=== PATIENT | female | born 1965 | race Caucasian/White ===

== ENCOUNTER 2023-05-23 15:15 | Emergency (ER) | payer MEDICARE, SELFPAY ==
--- NOTE | 2023-05-23 15:39 | ED_ITS ---
HPI - General Adult General Chief complaint: Psychiatric Symptoms Stated complaint: from adult daycare,depressed, fears for her safety Time Seen by Provider: 05/23/23 15:36 Source: patient and EMS Mode of arrival: EMS Limitations: no limitations History of Present Illness HPI narrative: Patient is a 57 year old assigned female at with a history of anxiety presenting to the emergency department today with increased depression. Patient states that she is feeling more depressed and down lately. Patient states that she isn't suicidal but she doesn't feel safe to go home at this time. Patient denies any dizziness, lightheadedness, abdominal pain, nausea, vomiting, fever, chills, blurry vision, double vision, loss of vision, chest pain, difficulty breathing, shortness of breath, back pain, night sweats, pain with urination, increased urinary frequency, increased urinary urgency, blood in her urine or stool, syncope or a near syncopal episode, recent trauma or falls, bowel incontinence, bladder incontinence, bowel retention, bladder retention, or any other complaints at this time. Relieving factors: none Exacerbating factors: none Associated symptoms: denies other symptoms Treatments prior to arrival: none Related Data Home Medications Medication Instructions Recorded Confirmed acetaminophen 325 mg tablet 650 mg PO Q4H PRN Pain 05/23/23 05/23/23 (Tylenol) aripiprazole 5 mg tablet (Abilify) 5 mg PO BEDTIME 05/23/23 05/23/23 duloxetine 60 mg capsule,delayed 120 mg PO BEDTIME 05/23/23 05/23/23 release enalapril maleate 5 mg tablet 5 mg PO BEDTIME 05/23/23 05/23/23 famotidine 20 mg tablet (Pepcid) 20 mg PO BEDTIME 05/23/23 05/23/23 gabapentin 600 mg tablet 600 mg PO TID 05/23/23 05/23/23 (Neurontin) hydroxyzine HCl 50 mg tablet 50 mg PO BEDTIME 05/23/23 05/23/23 levetiracetam 1,000 mg tablet 1,000 mg PO TID 05/23/23 05/23/23 levetiracetam 250 mg tablet 250 mg PO TID 05/23/23 05/23/23 lorazepam 1 mg tablet (Ativan) 1 mg PO BEDTIME PRN Anxiety 05/23/23 05/23/23 mometasone-formoterol HFA 100 2 puff inhalation BID 05/23/23 05/23/23 mcg-5 mcg/actuation aerosol inhaler (Dulera) Allergies Allergy/AdvReac Type Severity Reaction Status Date / Time latex Allergy Unknown Verified 05/23/23 15:53 meloxicam Allergy Unknown Verified 05/23/23 15:53 nadolol Allergy Unknown Verified 05/23/23 15:53 Penicillins Allergy Unknown Verified 05/23/23 15:53 topiramate Allergy Unknown Verified 05/23/23 15:53 sulfa drugs Allergy Unknown Uncoded 05/23/23 15:53 Review of Systems 2 Constitutional: Constitutional: Reports no additional constitutional complaints, Denies chills, Denies fever(s) and Denies night sweats Eyes: Eyes: Reports no additional eye complaints, Denies blurry vision, Denies change in vision, Denies diplopia, Denies eye discharge, Denies loss of vision and Denies eye pain ENT: Denies dizziness Cardiovascular: Cardiovascular: Reports no additional cardiovascular complaints, Denies chest pain, Denies lightheadedness, Denies Loss of Consciousness and Denies dyspnea Respiratory: Respiratory: Reports no additional respiratory complaints and Denies dyspnea Gastrointestinal: Gastrointestinal: Reports no additional gastrointestinal complaints, Denies abdominal pain, Denies melena, Denies hematochezia, Denies change in bowel habits and Denies change in stool character Genitourinary: Genitourinary: Denies hematuria, Denies urinary frequency, Denies dysuria, Denies urinary incontinence, Denies urinary hesitancy and Denies urinary urgency Musculoskeletal: Musculoskeletal: Reports no additional musculoskeletal complaints, Denies numbness and Denies tingling Neurologic: Denies dizziness, Denies loss of vision, Denies numbness and Denies tingling Psychiatric: Psychiatric: Reports depression Endocrine: Endocrine: Reports no additional endocrine complaints Hematologic/Lymphatic: Hematologic/Lymphatic: Reports no additional hematologic/lymphatic complaints Allergic/Immunologic: Allergic/Immunologic: Reports no additional allergic/immunologic complaints PMFSH Past Medical History Attestation statement: The following information was validated with the patient. Source: old records reviewed and nursing notes reviewed Social History Social History Smoked in Last 30 Days: No Use of substances other than those prescribed or required for medical reasons: No Advance Directives: No Advance Directives Information Provided: No Physical Exam ED Vital Signs: Vital Signs - 24 hr 05/23/23 17:05 05/24/23 06:44 Temperature 97.5 F 96.8 F Pulse Rate 83 80 Respiratory Rate 18 18 Blood Pressure 154/98 H 152/79 H Pulse Oximetry 94 97 Oxygen Delivery Method Room Air Room Air BMI result Body Mass Index 53.9 Const General: cooperative, no acute distress, alert and awake Nutritional Appearance: well nourished Orientation/consciousness: patient oriented x3 Limitations: no limitations HENMT Head: Yes normal to inspection and Yes atraumatic Ears: hearing grossly normal bilaterally and external ears normal General nose exam: Normal external nose present, no nasal discharge noted and no epistaxis Face and sinus: Yes normal facial exam, No abrasion and No laceration Mouth: Normal oral and palatal mucosa present, no drooling and no muffled voice Eyes General: appearance normal, both eyes and all related structures Periorbital: periorbital findings normal Eyelids: Yes eyelids normal Conjunctivae: conjunctivae normal Pupils: Equal, round and reactive pupils present EOM: EOMs intact bilaterally Neck Neck: Yes normal visual inspection, Yes full ROM and Yes no lymphadenopathy Chest Chest palpation & inspection: normal inspection of the chest Resp Effort & Inspection: normal respiratory effort and able to speak in complete sentences GI Inspection: Yes normal to inspection Neuro General: patient oriented x3 and moves all extremities Cranial nerves: Yes Equal, round and reactive pupils present Cognition (Neuro): normal cognition Motor exam (neuro): 5/5 motor strength present throughout Sensory Exam: Normal double simultaneous stimulation for sensation Coordination: [id number] test normal Extrem General: Yes normal to inspection, Yes full ROM and Yes capillary refill normal Psych Appearance: grossly normal Mental Status: mental status grossly normal Affect: Sad affect present Medications Administered Generic Name Dose Route Start Last Admin Trade Name Freq PRN Reason Stop Dose Admin Aripiprazole 5 mg 05/23/23 21:00 05/23/23 21:44 Aripiprazole 5 Mg Tablet PO 5 mg BEDTIME OK Administration Duloxetine HCl 120 mg 05/23/23 21:00 05/23/23 21:43 Duloxetine Hcl 60 Mg Capsule.Dr PO 120 mg BEDTIME OK Administration Enalapril Maleate 5 mg 05/23/23 21:00 05/23/23 21:43 Enalapril Maleate 5 Mg Tablet PO 5 mg BEDTIME OK Administration Protocol Famotidine 20 mg 05/23/23 21:00 05/23/23 21:44 Famotidine 20 Mg Tablet PO 20 mg BEDTIME OK Administration Fluticasone/Vilanterol 1 puff 05/24/23 08:00 05/24/23 10:32 Fluticasone/Vilanterol 100/25 Blst.W.Dev INHALE Not Given RDAILY OK Gabapentin 600 mg 05/23/23 21:00 05/24/23 14:19 Gabapentin 600 Mg Tablet PO 600 mg TID OK Administration Hydroxyzine HCl 50 mg 05/23/23 21:00 05/23/23 21:43 Hydroxyzine Hcl 50 Mg Tablet PO 50 mg BEDTIME OK Administration Levetiracetam 1,000 mg 05/23/23 21:00 05/24/23 14:19 Levetiracetam 1,000 Mg Tablet PO 1,000 mg TID OK Administration Levetiracetam 250 mg 05/23/23 21:00 05/24/23 14:20 Levetiracetam 250 Mg Tablet PO 250 mg TID OK Administration Lorazepam 1 mg 05/23/23 16:50 05/23/23 22:19 Lorazepam 1 Mg Tablet PO 1 mg BEDTIME PRN Administration Anxiety Discontinued Medications Generic Name Dose Route Start Last Admin Trade Name Freq PRN Reason Stop Dose Admin Acetaminophen 975 mg 05/24/23 09:12 05/24/23 09:28 Acetaminophen 325 Mg Tablet PO 05/24/23 09:13 975 mg ONCE STA Administration Enalapril Maleate 5 mg 05/23/23 17:00 05/23/23 17:52 Enalapril Maleate 5 Mg Tablet PO Not Given DAILY OK Protocol Lorazepam 1 mg 05/24/23 14:14 05/24/23 14:20 Lorazepam 1 Mg Tablet PO 05/24/23 14:15 1 mg ONCE ONE Administration Melatonin 6 mg 05/24/23 00:09 05/24/23 00:21 Melatonin 3 Mg Tablet PO 05/24/23 00:10 6 mg ONCE ONE Administration Medical Decision Making Medical Decision Making MDM Narrative: Patient is a 57 year old assigned female at with a history of depression and anxiety presenting to the emergency department today with increased depression. Patient's physical exam was as noted in the physical exam portion of this note. Patient's blood work was unremarkable. Patient's urine showed no acute process. Patient is awaiting CARE team evaluation. Patient's disposition will be determined after CARE team evaluation. Physician observation began 1605. 05/24/2023 07:47 hours Physician observation continued Patient has been in the emergency department for 16 hours and 30 minutes. Patient presented to the emergency department for increased depression, patient was evaluated by the care team and the plan is to re-evaluate the patient this morning to see if her symptoms are improved and to determine disposition. There were no reported incidents on the patient by the overnight staff. Patient will remain in the emergency department Behavioral Health Unit until disposition can be determined or until patient's symptoms improve over time. 15:03 Physician observation continued Patient was re-evaluated by the care team. The patient was presented to a respite unit and the patient has been accepted but bed will not be available till tomorrow morning. Therefore, the patient will be kept in the emergency department Behavioral Health Unit until disposition can be obtained. Differential Diagnosis Differential Diagnoses: The differential diagnosis associated with the presentation includes Depression Anxiety Feeling unsafe Admission/Observation Consideration of admission/observation: Escalation of care including admission/observation considered Patient's disposition will be determined after CARE evaluation. Lab Data [facility] Lab Attestation statement: I reviewed the patient's lab results. My interpretation of these results are in the [facility] Rationale portion of this note. 05/23/23 16:49 05/23/23 16:49 Labs: Lab Results 05/23/23 05/23/23 05/23/23 Range/Units 16:49 16:50 17:15 WBC 7.3 (4.8-10.8) X10*3/uL RBC 4.76 (4.20-5.50) X10*6/uL Hgb 12.9 (12.0-16.0) g/dl Hct 40.9 (37.0-47.0) % MCV 85.9 (80.0-98.0) fL MCH 27.1 (27.0-33.0) pg MCHC 31.5 (31.0-35.0) g/dl RDW 15.0 (11.0-16.0) % Plt Count 291 (160-400) X10*3/uL MPV 10.0 (9.4-12.3) fL Immature Gran % (Auto) 0.3 (0.0-0.4) % Neut % (Auto) 73.6 H (45-73) % Lymph % (Auto) 17.3 L (20-40) % Hall % (Auto) 6.0 (2-11) % Eos % (Auto) 2.5 (0-4) % Baso % (Auto) 0.3 (0-2) % Lymph # (Auto) 1.3 (1.2-4.9) X10*3/uL Hall # (Auto) 0.4 (0.1-1.2) X10*3/uL Eos # (Auto) 0.2 (0.0-0.4) X10*3/uL Baso # (Auto) 0.0 (0.0-0.2) X10*3/uL Abs Immat Gran (auto) 0.02 (0.00-0.03) X10*3/uL Absolute Neuts (auto) 5.4 (2.0-8.3) x10*3/uL Absolute Nucleated RBC 0.000 (0.0-0.012) X10*3/uL Nucleated RBC % (auto) 0.0 (0.0-0.2) /100WBC Sodium 141 (135-145) mmol/L Potassium 4.3 (3.3-5.1) mmol/L Chloride 105 (96-108) mmol/L Carbon Dioxide 27 (22-29) mmol/L Anion Gap 13 (12-20) BUN 17 H (9-16) mg/dL Creatinine 0.89 (0.5-1.4) mg/dL Estim Creat Clear Calc 108.0 Estimated GFR > 60 Random Glucose 101 (60-115) mg/dL Calcium 10.1 (8.4-10.2) mg/dL Total Bilirubin 0.4 (0.0-1.0) mg/dL AST 14 (5-31) U/L ALT 16 (0-31) U/L Alkaline Phosphatase 95 (39-117) U/L Total Protein 8.0 (6.5-8.0) g/dL Albumin 4.3 (3.5-5.0) g/dL Urine Color Yellow Urine Appearance Clear Urine pH 5.0 (5.0-9.0) Ur Specific [place] 1.020 (1.005-1.025) Urine Protein Negative (Neg-Trace) mg/dL Urine Glucose (UA) Negative (Negative) mg/dL Urine Ketones Negative (Negative) mg/dL Urine Blood Negative (Negative) Urine Nitrite Negative (Negative) Ur Leukocyte Esterase Negative (Negative) Urine Opiates Screen Not Detected (Not Detect) Urine Fentanyl Screen Not Detected (Not Detect) Ur Barbiturates Screen Not Detected (Not Detect) Ur Phencyclidine Scrn Not Detected (Not Detect) Ur Amphetamines Screen Not Detected (Not Detect) U Benzodiazepines Scrn Not Detected (Not Detect) Urine Cocaine Screen Not Detected (Not Detect) U Marijuana (THC) Screen Not Detected (Not Detect) Ethyl Alcohol < 10 mg/dL COVID-19 ([facility]) Negative (Negative) COVID-19 Clin Com See Note Independent Historian Clinical information obtained from an independent historian. History obtained from or confirmed by: EMS (EMS provided additional history and confirmed the history provided by the patient.) Critical Care Time Critical Care Time Critical Care Time: Yes Total Critical Care Time: 45 Attestation: I spent 45 minutes of Critical Care Time with this patient. This does not include time spent on separately reported billable procedures. Discharge Plan Discharge Clinical Impression: Depression Patient Disposition: Still a Patient Prescriptions: No Action gabapentin [Neurontin] 600 mg Tablet 600 mg PO TID famotidine [Pepcid] 20 mg Tablet 20 mg PO BEDTIME hydroxyzine HCl 50 mg Tablet 50 mg PO BEDTIME lorazepam [Ativan] 1 mg Tablet 1 mg PO BEDTIME PRN (Reason: Anxiety) aripiprazole [Abilify] 5 mg Tablet 5 mg PO BEDTIME Dulera 100-5 mcg/actuation Hfa Aerosol Inhaler 2 puff INHALATION BID acetaminophen [Tylenol] 325 mg Tablet 650 mg PO Q4H PRN (Reason: Pain) duloxetine 60 mg Capsule,Delayed Release(Dr/Ec) 120 mg PO BEDTIME enalapril maleate 5 mg tablet 5 mg PO BEDTIME levetiracetam 250 mg tablet 250 mg PO TID levetiracetam 1,000 mg tablet 1,000 mg PO TID Interventions: [place]-Suicide Risk Severity Scale Last Done: 05/24/23 04:18
[2023-05-23 15:41] VITALS: BP 150/85; PULSE 82; O2SAT 95; BMI 53.9
--- NOTE | 2023-05-23 15:45 | PC.NURSE ---
pt comes from adult day care for not feeling safe to go home . pt sts I have no will to live with my parents gone, I want to go up to [facility] and be with them . pt sts she has always lived with her parents as they took care of her with her learning disability. once her parents got older she took care of them and now that they're gone, has no one. pt sts she has a sister that takes care of her own [id number]. pt requesting t/w call sister to let her know that pt is here and why. pt calm and cooperative roseann. changed over to BHPOD attire. pt has a cane that has been put with belongings, pt given walker. plan of care ongoing.
[2023-05-23 16:59] LABS: MANUAL DIFF FLAG NO
[2023-05-23 17:02] LABS: Basophils Percent Auto 0.3 % (0-2); Eosinophils Absolute Auto 0.2 X10*3/uL (0.0-0.4); Eosinophils Percent Auto 2.5 % (0-4); Hematocrit 40.9 % (37.0-47.0); Hemoglobin 12.9 g/dl (12.0-16.0); Imm Gran Abs Auto 0.02 X10*3/uL (0.00-0.03); Imm Gran Pct Auto 0.3 % (0.0-0.4); Lymphocytes Absolute Auto 1.3 X10*3/uL (1.2-4.9); Lymphocytes Percent Auto 17.3 % (20-40); Mean Corpuscular HGB Conc 31.5 g/dl (31.0-35.0); Mean Corpuscular Hemoglobin 27.1 pg (27.0-33.0); Mean Corpuscular Volume 85.9 fL (80.0-98.0); Monocytes Absolute Auto 0.4 X10*3/uL (0.1-1.2); Neutrophils Absolute Auto 5.4 x10*3/uL (2.0-8.3); Neutrophils Percent Auto 73.6 % (45-73); Platelet Count 291 X10*3/uL (160-400); Red Blood Count 4.76 X10*6/uL (4.20-5.50); White Blood Count 7.3 X10*3/uL (4.8-10.8)
[2023-05-23 17:05] VITALS: BP 154/98; PULSE 83; RESP 18; TEMP 36.4; O2SAT 94
[2023-05-23 17:22] LABS: COVID-19 Test Negative (Negative); IDNOW Serial# 08D9AD1C
[2023-05-23 17:29] LABS: Appearance Urine Clear; Color Urine Yellow; Glucose Urine UA Negative (Negative); Leukocyte Esterase Urine Negative (Negative); Nitrite Urine Negative (Negative); Urine Blood Negative (Negative); Urine Ketones Negative (Negative); Urine Protein Negative (Neg-Trace)
[2023-05-23 17:32] LABS: Alanine Aminotransferase 16 U/L (0-31); Albumin Level 4.3 g/dL (3.5-5.0); Alkaline Phosphatase 95 U/L (39-117); Anion Gap 13 (12-20); Aspartate Amino Transferase 14 U/L (5-31); Bilirubin Total 0.4 mg/dL (0.0-1.0); Blood Urea Nitrogen 17 mg/dL (9-16); Calcium 10.1 mg/dL (8.4-10.2); Carbon Dioxide 27 mmol/L (22-29); Chloride 105 mmol/L (96-108); Estimated Glomerular Filt Rate > 60; Ethanol < 10 mg/dL; Glucose Random 101 mg/dL (60-115); Potassium 4.3 mmol/L (3.3-5.1); Sodium 141 mmol/L (135-145)
[2023-05-23 17:35] LABS: Amphetamine Screen Urine Not Detected (Not Detect); Barbiturates, Urine Not Detected (Not Detect); Benzodiazepines Screen Urine Not Detected (Not Detect); Cannabinoid Screen Urine Not Detected (Not Detect); Cocaine Screen Urine Not Detected (Not Detect); Fentanyl, urine Not Detected (Not Detect); Opiate Screen Urine Not Detected (Not Detect); Phencyclidine Screen Urine Not Detected (Not Detect)
[2023-05-23] MEDS: LORazepam 1 MG TABLET PO ×2 (17:36→22:19)
--- NOTE | 2023-05-23 17:48 | PC.NURSE ---
med rec complete. pt sts she takes PRN ativan as well as at night. pt given prn ativan for anxiety. pt in room watching tv, in no distress roseann. cooperative with staff. ambulated out of room without walker. pt is a&o. plan of care ongoing.
--- NOTE | 2023-05-23 19:04 | PHA.MEDREC ---
Pharmacy Consult ? Medication Reconciliation Pharmacy has reviewed the medication reconciliation completed by Kell. Maria Ines Mccray, YoavD
[2023-05-23] MEDS: DULoxetine HCl 60 MG CAPSULE.DR 120 MG PO (21:43)
[2023-05-23] MEDS: levETIRAcetam 250 MG TABLET PO (21:43)
[2023-05-23] MEDS: hydrOXYzine HCL 50 MG TABLET PO (21:43)
[2023-05-23] MEDS: levETIRAcetam 1,000 MG TABLET 1000 MG PO (21:43)
[2023-05-23] MEDS: Gabapentin 600 MG TABLET PO (21:43)
[2023-05-23] MEDS: ARIPiprazole 5 MG TABLET PO (21:44)
[2023-05-23] MEDS: Famotidine 20 MG TABLET PO (21:44)
[2023-05-24] MEDS: Melatonin 3 MG TABLET 6 MG PO (00:21)
[2023-05-24 06:44] VITALS: BP 152/79; PULSE 80; RESP 18; TEMP 36; O2SAT 97
[2023-05-24] MEDS: levETIRAcetam 250 MG TABLET PO ×3 (09:08→20:36)
[2023-05-24] MEDS: levETIRAcetam 1,000 MG TABLET 1000 MG PO ×3 (09:08→20:36)
[2023-05-24] MEDS: Gabapentin 600 MG TABLET PO ×3 (09:08→20:36)
[2023-05-24] MEDS: Acetaminophen 325 MG TABLET 975 MG PO (09:28)
[2023-05-24] MEDS: LORazepam 1 MG TABLET PO ×2 (14:20→21:29)
--- NOTE | 2023-05-24 15:24 | MHC.CARE ---
Patient referred to [facility], she completed phone screening with Ani; they will call night or tomorrow to coordinate admission. Dr. Pierce updated with plan of care.
[2023-05-24] MEDS: Acetaminophen 325 MG TABLET 650 MG PO (17:38)
[2023-05-24 20:12] VITALS: BP 135/67; PULSE 72; RESP 16; TEMP 36.6; O2SAT 96
[2023-05-24] MEDS: DULoxetine HCl 60 MG CAPSULE.DR 120 MG PO (20:36)
[2023-05-24] MEDS: ARIPiprazole 5 MG TABLET PO (20:36)
[2023-05-24] MEDS: hydrOXYzine HCL 50 MG TABLET PO (20:36)
[2023-05-24] MEDS: Famotidine 20 MG TABLET PO (20:36)
--- NOTE | 2023-05-24 21:20 | PC.NURSE ---
This conventional underwriter assumed care of this Pt at 1900. Pt A&Ox3, calm and cooperative. Pt in common area watching TV. Pt ambulating independently with steady gait. Pt medicated per MAY. PO fluids given per request.
[2023-05-24 23:25] VITALS: BP 163/99; PULSE 70; RESP 16; TEMP 36.2; O2SAT 97
--- NOTE | 2023-05-25 01:22 | PC.NURSE ---
Pt ambulated to BR with steady gait. Back to room.
[2023-05-25] MEDS: levETIRAcetam 1,000 MG TABLET 1000 MG PO (08:17)
[2023-05-25] MEDS: levETIRAcetam 250 MG TABLET PO (08:17)
[2023-05-25] MEDS: Gabapentin 600 MG TABLET PO (08:17)
--- NOTE | 2023-05-25 08:27 | PC.NURSE ---
assumed care of pt at 0700. pt a&o x4, pleasant, calm, and cooperative. pt medicated per mar with morning meds. pt reporting a caffeine headache , provided with hot tea. pt denies SI, sts she is still depressed due to the loss of her parents. pt requesting 1:1 therapy or group therapy. sts she does not want to go backwards due to her making progress. pt resting quietly on bed watching tv. rr even/unlabored. awaiting re-evaluation by care team. plan of care ongoing.
--- NOTE | 2023-05-25 09:27 | PC.NURSE ---
called pharmacy at 0900 for juan diego. never brought up.
[2023-05-25 10:13] VITALS: BP 159/93; PULSE 79; RESP 16; TEMP 36.7; O2SAT 97
== END 2023-05-25 10:28 ==
PROVIDERS: Emergency Medicine; Emergency Provider Emergency Medicine Emergency Medical Services
DX: F33.9 Major depressive disorder, recurrent, unspecified (principal); F41.9 Anxiety disorder, unspecified; Z79.899 Other long term (current) drug therapy; Z11.52 Encounter for screening for COVID-19
CPT/HCPCS: 80053; 80307; 81003; 85025; 87635; 99285; S9485

== ENCOUNTER 2023-08-22 14:57 | Emergency (ER) | payer MEDICARE, SELFPAY ==
--- NOTE | ~2023-08-22 | US_ITS ---
EXAMINATION: US VENOUS ULTRASOUND WITH DOPPLER LOWER EXTREMITY, RIGHT CLINICAL INFORMATION: Erythema, pain, swelling COMPARISON: None available. TECHNIQUE: Ultrasound of the deep veins is performed from the hip to the calf with compression sonography and color and pulse Doppler assessment. Spectral analysis with color-flow imaging is performed. FINDINGS: There is normal venous compression and respiratory variation and augmented flow. The visualized common femoral vein, superficial femoral vein, profunda femoral vein, popliteal vein, and the trifurcation region shows no evidence of deep venous thrombosis. There is no significant popliteal fossa cyst. If the patient's symptoms persist, followup ultrasound in 5 days 7 days might be of value to exclude proximal propagation from a non-visualized calf vein. US/US venous duplex LE RT IMPRESSION: No DVT demonstrated in the right lower extremity.
--- NOTE | 2023-08-22 15:16 | ED_ITS ---
HPI - General Adult General Chief complaint: General Medical Stated complaint: ?DVT FROM SNF PER EMS Time Seen by Provider: 08/22/23 15:16 Source: patient, EMS and RN notes reviewed Mode of arrival: EMS Limitations: no limitations History of Present Illness ED Provider: Silver Chandler NP HPI narrative: Patient is a 57-year-old female presenting to the emergency department from [facility] for evaluation of right lower leg erythema, pain, and swelling. Patient initially presented to [facility] in [place] for this same complaint. At that time, she had an ultrasound and there was no evidence of DVT. Patient was having difficulty getting to her apartment as she has to climb 14 stairs because she lives on the 2nd floor so she was discharged to acute rehab at that time. Patient states the pain, erythema, and swelling have worsened since. She states she is getting up and walking 5-6 times daily at rehab. She has not anticoagulated. Denies chest pain, palpitations, or dyspnea. MD complaint: right leg pain and swelling Onset (ago): week(s) Location: right and lower extremity Radiation: non-radiation Severity: severe Quality: aching Pain Consistency: constant Relieving factors: rest Exacerbating factors: movement Associated symptoms: denies other symptoms Treatments prior to arrival: other (physical therapy) Related Data Home Medications ?Medication ?Instructions ?Recorded ?Confirmed acetaminophen 325 mg tablet 650 mg PO Q4H PRN Pain 05/23/23 05/23/23 (Tylenol) aripiprazole 5 mg tablet (Abilify) 5 mg PO BEDTIME 05/23/23 05/23/23 duloxetine 60 mg capsule,delayed 120 mg PO BEDTIME 05/23/23 05/23/23 release enalapril maleate 5 mg tablet 5 mg PO BEDTIME 05/23/23 05/23/23 famotidine 20 mg tablet (Pepcid) 20 mg PO BEDTIME 05/23/23 05/23/23 gabapentin 600 mg tablet 600 mg PO TID 05/23/23 05/23/23 (Neurontin) hydroxyzine HCl 50 mg tablet 50 mg PO BEDTIME 05/23/23 05/23/23 levetiracetam 1,000 mg tablet 1,000 mg PO TID 05/23/23 05/23/23 levetiracetam 250 mg tablet 250 mg PO TID 05/23/23 05/23/23 lorazepam 1 mg tablet (Ativan) 1 mg PO BEDTIME PRN Anxiety 05/23/23 05/23/23 mometasone-formoterol HFA 100 2 puff inhalation BID 05/23/23 05/23/23 mcg-5 mcg/actuation aerosol inhaler (Dulera) Previous Rx's ?Medication ?Instructions ?Recorded cephalexin 500 mg capsule 500 mg PO QID #28 caps 08/22/23 Allergies Allergy/AdvReac Type Severity Reaction Status Date / Time latex Allergy Unknown Verified 08/22/23 15:30 meloxicam Allergy Unknown Verified 08/22/23 15:30 nadolol Allergy Unknown Verified 08/22/23 15:30 Penicillins Allergy Unknown Verified 08/22/23 15:30 topiramate Allergy Unknown Verified 08/22/23 15:30 sulfa drugs Allergy Unknown Uncoded 05/23/23 15:53 Review of Systems 2 Review of Systems: As per HPI. Yes all other systems are reviewed and are negative Constitutional: Constitutional: Reports as per HPI [facility] Social History Social History Advance Directives: No Advance Directives Information Provided: No Do you have a plan to hurt others: No Plan Physical Exam ED Vital Signs: Vital Signs - 24 hr 08/22/23 15:28 Temperature 98.8 F Pulse Rate 70 Respiratory Rate 20 Blood Pressure 131/72 Pulse Oximetry 97 Oxygen Delivery Method Room Air BMI result Body Mass Index 57.9 Vital signs have been reviewed and appear to be correct. Blood pressure normal. Heart rate normal. Respiratory rate normal. Temperature normal. Oxygen saturation normal. Const General: cooperative and no acute distress Orientation/consciousness: oriented to person, oriented to place, oriented to time and patient oriented x3 Limitations: no limitations HENMT Head: Yes normocephalic and Yes atraumatic Ears: external ears normal General nose exam: Normal external nose present Face and sinus: Yes face symmetric Mouth: oropharynx normal and moist mucous membranes Throat: Yes uvula midline Eyes Pupils: Equal, round and reactive pupils present Neck Neck: Yes normal visual inspection and Yes supple Resp Effort & Inspection: normal respiratory effort and able to speak in complete sentences Auscultation: clear to auscultation bilaterally Cardio Rate: regular rate Rhythm: regular rhythm Heart sounds: S1 normal heart sound present and S2 normal heart sound present GI Palpation (GI): Soft to palpation and nontender Auscultation: normoactive bowel sounds General: Yes no CVA tenderness Back/Spine/Pelvis Back: no CVA tenderness Skin General skin exam: elasticity normal and turgor normal Neuro General: oriented to person, oriented to place, oriented to time, patient oriented x3, moves all extremities, no focal motor deficits and CN's II-XI intact bilaterally Cranial nerves: Yes Equal, round and reactive pupils present Cognition (Neuro): normal cognition Extrem General: Yes full ROM and Yes normal exam except as noted Right lower extremity: lower leg Details: erythema Location: of the distal lower leg (circumferential), tenderness Location: of the posterior calf, non-pitting edema and warmth Location: of the distal lower leg and foot Details: vascular exam Details: dorsalis pedis pulse present and posterior tibial pulse present Left lower extremity: lower leg Details: erythema Location: of the distal lower leg (circumferential) and non-pitting edema; no tenderness and foot Details: vascular exam Details: dorsalis pedis pulse present and posterior tibial pulse present Psych Mental Status: mental status grossly normal Affect: normal affect Thought process: Normal thought process present Course Reevaluation(s) Reevaluation #1: Patient received in sign-out at change of shift pending ultrasound to rule out DVT. On exam, her right lower extremity does seem slightly more erythematous compared to left. We will treat with 1 week of cephalexin for concern of cellulitis. I discussed this with the patient, she will be discharged back to her rehab Time: 19:52 Medical Decision Making Medical Decision Making [facility] Narrative: Patient is a 57-year-old female presenting to the emergency department from [facility] for evaluation of right lower leg erythema, pain, and swelling. On exam patient is awake, A+Ox3, VS WNL, afebrile, normal neurological exam without focal deficits, physical exam findings as above. Given reported symptoms and physical exam findings, initial differential includes DVT, venous insufficiency, dependent edema. Patient signed out to [facility] pending labs and ultrasound. Differential Diagnosis Differential Diagnoses: The differential diagnosis associated with the presentation includes As per MDM. Lab Data 08/22/23 17:14 08/22/23 17:14 Labs: Lab Results 08/22/23 Range/Units 17:14 WBC 4.8 (4.8-10.8) X10*3/uL RBC 4.18 L (4.20-5.50) X10*6/uL Hgb 11.3 L (12.0-16.0) g/dl Hct 35.7 L (37.0-47.0) % MCV 85.4 (80.0-98.0) fL MCH 27.0 (27.0-33.0) pg MCHC 31.7 (31.0-35.0) g/dl RDW 14.7 (11.0-16.0) % Plt Count 266 (160-400) X10*3/uL MPV 10.7 (9.4-12.3) fL Immature Gran % (Auto) 0.4 (0.0-0.4) % Neut % (Auto) 68.7 (45-73) % Lymph % (Auto) 16.4 L (20-40) % [place] % (Auto) 6.7 (2-11) % Eos % (Auto) 7.2 H (0-4) % Baso % (Auto) 0.6 (0-2) % Lymph # (Auto) 0.8 L (1.2-4.9) X10*3/uL [place] # (Auto) 0.3 (0.1-1.2) X10*3/uL Eos # (Auto) 0.3 (0.0-0.4) X10*3/uL Baso # (Auto) 0.0 (0.0-0.2) X10*3/uL Abs Immat Gran (auto) 0.02 (0.00-0.03) X10*3/uL Absolute Neuts (auto) 3.3 (2.0-8.3) x10*3/uL Absolute Nucleated RBC 0.000 (0.0-0.012) X10*3/uL Nucleated RBC % (auto) 0.0 (0.0-0.2) /100WBC PT 12.3 (11.1-13.3) SEC INR 1.0 (0.9-1.1) Sodium 139 (135-145) mmol/L Potassium 4.7 (3.3-5.1) mmol/L Chloride 103 (96-108) mmol/L Carbon Dioxide 28 (22-29) mmol/L Anion Gap 13 (12-20) BUN 10 (9-16) mg/dL Creatinine 0.79 (0.5-1.4) mg/dL Estim Creat Clear Calc 127.5 Estimated GFR > 60 Random Glucose 106 (60-115) mg/dL Calcium 9.7 (8.4-10.2) mg/dL Total Bilirubin 0.4 (0.0-1.0) mg/dL AST 18 (5-31) U/L ALT 15 (0-31) U/L Alkaline Phosphatase 95 (39-117) U/L B-Natriuretic Peptide 45 (<100) pg/mL Total Protein 7.1 (6.5-8.0) g/dL Albumin 3.7 (3.5-5.0) g/dL Discharge Plan Discharge Clinical Impression: Right leg swelling Patient Disposition: Home, Self-Care Instructions: Cellulitis (ED) Additional Instructions: Your ultrasound was negative for DVT. You were prescribed cephalexin to treat cellulitis Your blood work was reassuring Follow-up with your primary doctor Prescriptions: New cephalexin 500 mg capsule 500 mg PO QID Qty: 28 0RF No Action gabapentin [Neurontin] 600 mg Tablet 600 mg PO TID famotidine [Pepcid] 20 mg Tablet 20 mg PO BEDTIME hydroxyzine HCl 50 mg Tablet 50 mg PO BEDTIME lorazepam [Ativan] 1 mg Tablet 1 mg PO BEDTIME PRN (Reason: Anxiety) aripiprazole [Abilify] 5 mg Tablet 5 mg PO BEDTIME Dulera 100-5 mcg/actuation Hfa Aerosol Inhaler 2 puff INHALATION BID acetaminophen [Tylenol] 325 mg Tablet 650 mg PO Q4H PRN (Reason: Pain) duloxetine 60 mg Capsule,Delayed Release(Dr/Ec) 120 mg PO BEDTIME enalapril maleate 5 mg tablet 5 mg PO BEDTIME levetiracetam 250 mg tablet 250 mg PO TID levetiracetam 1,000 mg tablet 1,000 mg PO TID Print Language: Qatari
[2023-08-22 15:28] VITALS: BP 131/72; BP 131/73; PULSE 70; PULSE 73; RESP 20; TEMP 37.1; O2SAT 97; BMI 57.9
[2023-08-22 17:18] LABS: MANUAL DIFF FLAG NO
[2023-08-22 17:27] LABS: Prothrombin Time 12.3 SEC (11.1-13.3)
[2023-08-22 17:34] LABS: Basophils Percent Auto 0.6 % (0-2); Eosinophils Absolute Auto 0.3 X10*3/uL (0.0-0.4); Eosinophils Percent Auto 7.2 % (0-4); Hematocrit 35.7 % (37.0-47.0); Hemoglobin 11.3 g/dl (12.0-16.0); Imm Gran Abs Auto 0.02 X10*3/uL (0.00-0.03); Imm Gran Pct Auto 0.4 % (0.0-0.4); Lymphocytes Absolute Auto 0.8 X10*3/uL (1.2-4.9); Lymphocytes Percent Auto 16.4 % (20-40); Mean Corpuscular HGB Conc 31.7 g/dl (31.0-35.0); Mean Corpuscular Volume 85.4 fL (80.0-98.0); Mean Platelet Volume 10.7 fL (9.4-12.3); Monocytes Absolute Auto 0.3 X10*3/uL (0.1-1.2); Monocytes Percent Auto 6.7 % (2-11); Neutrophils Absolute Auto 3.3 x10*3/uL (2.0-8.3); Neutrophils Percent Auto 68.7 % (45-73); Platelet Count 266 X10*3/uL (160-400); Red Blood Count 4.18 X10*6/uL (4.20-5.50); Red Cell Distribution Width 14.7 % (11.0-16.0); White Blood Count 4.8 X10*3/uL (4.8-10.8)
[2023-08-22 17:36] LABS: Alanine Aminotransferase 15 U/L (0-31); Albumin Level 3.7 g/dL (3.5-5.0); Alkaline Phosphatase 95 U/L (39-117); Anion Gap 13 (12-20); Aspartate Amino Transferase 18 U/L (5-31); Bilirubin Total 0.4 mg/dL (0.0-1.0); Blood Urea Nitrogen 10 mg/dL (9-16); Calcium 9.7 mg/dL (8.4-10.2); Carbon Dioxide 28 mmol/L (22-29); Chloride 103 mmol/L (96-108); Creatinine Clr Calc Pharmacy 127.5; Estimated Glomerular Filt Rate > 60; Glucose Random 106 mg/dL (60-115); Potassium 4.7 mmol/L (3.3-5.1); Sodium 139 mmol/L (135-145); Total Protein 7.1 g/dL (6.5-8.0)
[2023-08-22 17:45] LABS: B Type Natriuretic Peptide 45 pg/mL (<100)
[2023-08-22 22:07] VITALS: BP 129/74; PULSE 79; RESP 16; TEMP 37.1; O2SAT 97
== END 2023-08-22 22:09 | disposition home or self-care (01) ==
PROVIDERS: Registered Nurse Emergency; Emergency Provider Emergency Medicine; PCP Internal Medicine
DX: M79.89 Other specified soft tissue disorders (principal); M79.604 Pain in right leg
CPT/HCPCS: 36415; 80053; 83880; 85025; 85610; 93971; 99284